=== PATIENT | male | born 1960 | race Caucasian/White ===

== ENCOUNTER 2016-09-01 10:03 | Inpatient (IN) | payer MEDICARE ==
[2016-09-01] MEDS ORDERED: SODIUM CHLORIDE 0.9% 10 ML FLUSH FLUSH PRN (10:13)
[2016-09-01] MEDS ORDERED: NS 1,000 ML IV ONE (10:13)
[2016-09-01 10:31] LABS: ALLEN'S TEST PASS; BEb 2.6 (+/- 2); TCO2 28.5 MMOL/L (23-27)
[2016-09-01 10:32] LABS: ABG Draw Site Right Radial
--- NOTE | 2016-09-01 10:33 | EDPRACDOC ---
- General Information Chief Complaint: Dyspnea/Resp distress Stated Complaint: BREATHING DIFFICULTY Time Seen by Provider: 09/01/16 10:11 Information Source: Patient Mode Of Arrival: Car Home Medications: Home Medications Albuterol Sulfate [Proair Hfa] 2 puff INH QID 01/04/14 Dexlansoprazole [Dexilant] 30 mg PO DAILY 01/04/14 Fluticasone/Salmeterol [Advair 250-50 Diskus] 1 puff INH BID 01/04/14 Metoprolol Succinate [Toprol Xl] 25 mg PO DAILY 01/04/14 Montelukast Sodium [Singulair] 10 mg PO HS 01/04/14 Nitroglycerin [Nitroquick] 0.4 mg SL Q5MX3 PRN 01/04/14 Simvastatin 40 mg PO HS 01/04/14 Nebulizer [Needs Home Nebulizer] 1 item NEB DIR 02/08/16 Tiotropium [place] [Spiriva] 18 mcg INH DAILY 02/08/16 Albuterol/Ipratropium Neb [Duoneb] 3 ml NEB Q6H PRN 02/09/16 Aspirin [Aspirin EC] 81 mg PO DAILY 02/09/16 Fentanyl [Fentanyl 75 mcg/hr patch] 75 mcg TOP Q48H 05/03/16 Azelastine HCl 1 spray NITA DAILY 09/01/16 Bupropion HCl [Wellbutrin Xl] 150 mg PO .DAILY SEE COMMENTS 09/01/16 Diphenoxylate HCl/Atrop Sulf [Lomotil Tablet] 1 tab PO Q6H PRN 09/01/16 Fluticasone Propionate [Flonase Nasal [place]] 1 spray NITA DAILY 09/01/16 Trazodone HCl [Desyrel] 50 mg PO QHS 09/01/16 Allergies/Adverse Reactions: Allergies Allergy/AdvReac Type Severity Reaction Status Date / Time No Known Allergies Allergy Verified 05/03/16 12:00 - History of Present Illness Symptoms Started: 2 DAYS Symptoms: Reports: Cough Relevant History Of: Reports: COPD Shortness of Breath: Mild Cough Frequency: Intermittent Cough Description: Reports: Productive Rhinorrhea: Reports: Brown Ear Symptoms: Reports: None Associated Signs and Symptoms: Reports: Cough ED Past Medical History - History Reviewed Yes Nurses notes reviewed and agree except as marked - Patient Medical History Cardiac History: Reports: Hypertension, Heart Attack (2003 stent x 1 at [facility]), Cardiac Catheterization (2002 stent x 1 at [facility]). Denies: Congestive Heart Failure, CABG Respiratory History: Reports: COPD, Emphysema GI/ History: Reports: Gastroesophageal Reflux Musculoskeletal History: Reports: Arthritis (ANKYLOSING SPONDYLITIS, Spinal stensosis, DDD.), Osteoarthritis (and chronic pain) Psychological History: Reports: Depression, Anxiety. Denies: Substance Use Disorder (But patient smokes) Additional Past Medical History: CHRONIC PAIN Surgical History: Reports: Angioplasty, Cardiac Catheterization (2002 stent x 1 at [facility]), Tonsillectomy/Adnoidectomy, Other (Vasectomy. Lumbar laminectomy x2.). Denies: CABG - Family Medical History Reports: Hypertension (Mother, Father), Diabetes (Mother), Cancer (Father), Stroke (MGF, MGM), Cardiac Disorders (Father: [place] in 40s. PGF: [place].) - Social Medical History Smoking Status: Heavy tobacco smoker (5 or more cigarettes/day or daily pipe/ cigar) Social History: Denies: Substance Use Disorder (But patient smokes) EDM Review of Systems - Review of Systems ROS Negative Except as Marked: Yes All systems reviewed and were negative except as marked - Physical Exam Constitutional: Alert (Awake), No apparent distress Oriented to: Time, Person, Place Last recorded Vital Signs: Last Vital Signs Temp 98.4 F 09/01/16 10:10 Pulse 122 H 09/01/16 10:10 Resp 18 09/01/16 10:10 BP 137/88 09/01/16 10:10 Pulse Ox 94 09/01/16 10:10 Oxygen Pulse Oxygen Saturation 94 O2 Device Oxygen Flow Rate Fraction of Inspired Oxygen ( FIO2) - HEENT Head: Normal ( normocephalic) Eye Exam: Normal (PERRL, EOMI, Sclera white) Oropharynx: Normal (Pharynx:Moist without exudate,Gums-no swelling) ENT EAC: Normal TMJ: Normal Nose: No Symptoms Reported (septum midline) Neck: Normal (FROM, trachea at midline) - Respiratory/Cardiovascular Respiratory: Diminished, Wheezes. negative: Accessory Muscle Use Cardiovascular: Tachycardia - GI Auscultation: Normal (NABS) Palpation: Normal (Soft,No rebound or guarding, non distended) Tenderness: Non tender Cardoso's Sign: Negative - Musculoskeletal Back: Normal (Non-Tender) Extremities: Normal (Normal tone, Pulses 2+ No cyanosis or edema, FROM) - Integumentary Skin: Normal, Warm, Dry Lymphatics: Normal (no adenopathy) - Neurologic Memory Impaired: Normal Motor Function: Normal (Normal tone, Pulses 2+ No cyanosis or edema, FROM) Cranial Nerve: Normal (CN II-X11 intact sensation, strength 5/5) Cerebellar: Normal Mood Description: Normal Perception: Normal - Results 09/01/16 10:15 09/01/16 10:15 Puncture Site Right radial 09/01/16 10:27 pH 7.430 pH UNITS (7.35-7.45) 09/01/16 10:27 pCO2 41.0 mmHg (35-45) 09/01/16 10:27 pO2 54.0 mmHg (80-100) L 09/01/16 10:27 HCO3 27.2 MMOL/L (22-26) H 09/01/16 10:27 Total CO2 28.5 MMOL/L (23-27) H 09/01/16 10:27 Base Excess 2.6 (+/- 2) H 09/01/16 10:27 FiO2 % 0.21 09/01/16 10:27 Specimen Drawn By Belja 09/01/16 10:27 Lab Results 09/01/16 10:27 Puncture Site Right radial pH 7.430 pCO2 41.0 pO2 54.0 L HCO3 27.2 H Total CO2 28.5 H Base Excess 2.6 H FiO2 % 0.21 Specimen Drawn By Belja - EKG EKG #1 [place]: Normal Rhythm: ST Block: None Hypertrophy: None ST: Normal ED Critical Care Note - Critical Care Note Total Time (mins): 35 - Departure Yes I personally saw and evaluated the patient. Disposition: Admit IP To This Hospital Condition: Good Final Diagnosis: Acute exacerbation of chronic obstructive airways disease, Acute bronchitis, HYPOXIA Referrals: Ellie Moon MD [Primary Care Provider] - One Week Prescriptions: No Action Metoprolol Succinate [Toprol Xl] 25 mg PO DAILY Simvastatin 40 mg PO HS Montelukast Sodium [Singulair] 10 mg PO HS Dexlansoprazole [Dexilant] 30 mg PO DAILY Nitroglycerin [Nitroquick] 0.4 mg SL Q5MX3 PRN PRN Reason: Chest Pain Or Discomfort Fluticasone/Salmeterol [Advair 250-50 Diskus] 1 puff INH BID Albuterol Sulfate [Proair Hfa] 2 puff INH QID Tiotropium [place] [Spiriva] 18 mcg INH DAILY Nebulizer [Needs Home Nebulizer] 1 item NEB DIR Albuterol/Ipratropium Neb [Duoneb] 3 ml NEB Q6H PRN PRN Reason: Shortness Of Breath Aspirin [Aspirin EC] 81 mg PO DAILY Fentanyl [Fentanyl 75 mcg/hr patch] 75 mcg TOP Q48H Trazodone HCl [Desyrel] 50 mg PO QHS Fluticasone Propionate [Flonase Nasal [place]] 1 spray NITA DAILY Bupropion HCl [Wellbutrin Xl] 150 mg PO .DAILY SEE COMMENTS Diphenoxylate HCl/Atrop Sulf [Lomotil Tablet] 1 tab PO Q6H PRN PRN Reason: Diarrhea Azelastine HCl 1 spray NITA DAILY Decision to Admit Time: 11:40 (GREEN) Decision to admit date: 09/01/16 Decision to admit: from ED
[2016-09-01 10:37] LABS: AUTOMATED BASOPHIL 0.6 % (0-2); AUTOMATED EOSINOPHIL 0.7 % (0-5); AUTOMATED LYMPH 7.3 % (17-44); AUTOMATED MONOCYTE 6.2 % (3-10); AUTOMATED NEUTROPHIL 85.2 % (45-76); MPV 9.5 fL (7.4-10.4)
--- NOTE | 2016-09-01 10:37 | DIRPT ---
CLINICAL DATA: Chest pain, shortness breath for 2 days. EXAM: PORTABLE CHEST 1 VIEW COMPARISON: 05/05/2016 FINDINGS: There is hyperinflation of the lungs compatible with COPD. Heart and mediastinal contours are within normal limits. No focal opacities or effusions. No acute bony abnormality. IMPRESSION: COPD. No active disease. Electronically Signed By: Calixto Hair M.D. On: 09/01/2016 10:34
[2016-09-01 10:47] LABS: PARTIAL THROMB. TIME 27.4 SEC (22-35); PT-INR 1.1
[2016-09-01 10:49] LABS: BLOOD UREA NITROGEN 10 MG/DL (9-20); CALCIUM 9.4 MG/DL (8.4-10.2); CALCULATED OSMOLALITY 259 MOs/Kg (270-290); CHLORIDE 96 mEq/L (98-107); GLUCOSE 95 MG/DL (70-99); SODIUM LEVEL 135 mEq/L (137-146); TOTAL PROTEIN 8.2 G/DL (6.3-8.2)
[2016-09-01] MEDS ORDERED: Pharmacy Review for Metformin - IV Contrast Given SCH (11:00)
--- NOTE | 2016-09-01 11:27 | DIRPT ---
CLINICAL DATA: Shortness of breath for the past 2 days. History of CAD and COPD. Evaluate for pulmonary embolism. EXAM: CT ANGIOGRAPHY CHEST WITH CONTRAST TECHNIQUE: Multidetector CT imaging of the chest was performed using the standard protocol during bolus administration of intravenous contrast. Multiplanar CT image reconstructions and MIPs were obtained to evaluate the vascular anatomy. CONTRAST: 100 cc Isovue 370 COMPARISON: Chest radiograph-earlier same day; chest CT - 01/04/2014 FINDINGS: Vascular Findings: There is adequate opacification of the pulmonary arterial system with the main pulmonary artery measuring 425 Hounsfield units. There are no discrete filling defects within the pulmonary arterial tree to suggest pulmonary embolism. Normal caliber of the main pulmonary artery. Normal heart size. No pericardial effusion. Scattered minimal amount of atherosclerotic plaque within a normal caliber thoracic aorta. No thoracic aortic dissection or periaortic stranding. Conventional configuration of the aortic arch. The branch vessels of the aortic arch appear widely patent throughout their imaged course. Review of the MIP images confirms the above findings. Nonvascular Findings: Interval development of a punctate (approximately 3 mm) nodule within the left lower lobe (image 94, series 4). Previous identified right upper lobe pulmonary nodules are unchanged with dominant 6 mm nodule seen on image 30, series 4 an adjacent smaller (approximately 4 mm) nodule seen on image 23, series 4). Grossly unchanged slightly asymmetric biapical pleural parenchymal thickening, left greater than right. No focal airspace opacities. No pleural effusion or pneumothorax. There is a minimal amount of nonocclusive debris lying dependently within the right mainstem bronchus (image 54, series 4). The remaining central pulmonary airways are widely patent though note is made of very mild perihilar bronchial wall thickening. No mediastinal, hilar axillary lymphadenopathy. Early arterial phase evaluation of the upper abdomen is normal. Suspected at least subacute fracture involving the anterior aspect of the left fifth rib (image 66, series 3) with associated minimal adjacent callus formation, though new since the 01/2014 examination. Regional soft tissues appear normal. Normal appearance of the thyroid gland. IMPRESSION: 1. Suspected mild centralized airways disease/bronchitis. Otherwise, no acute cardiopulmonary disease. Specifically, no evidence of pulmonary embolism. 2. Age-indeterminate, though presumably at least subacute, nondisplaced fracture involving the anterior aspect of the left fifth rib. Clinical correlation is advised. 3. Previously identified right upper lobe pulmonary nodules are unchanged since the 01/2014 examination and thus of benign etiology. 4. Interval development of a punctate (approximately 3 mm) left lower lobe pulmonary nodule. If the patient is at high risk for bronchogenic carcinoma, follow-up chest CT at 1 year is recommended. If the patient is at low risk, no follow-up is needed. This recommendation follows the consensus statement: Guidelines for Management of Small Pulmonary Nodules Detected on CT Scans: A Statement from the Fleischner Society as published in Radiology 2005; 237:395-400. Electronically Signed By: Baudilio Simons M.D. On: 09/01/2016 11:24
[2016-09-01] MEDS ORDERED: AZITHROMYCIN 500 MG in D5W 250 ML IV ONE (11:29)
[2016-09-01] MEDS ORDERED: CEFTRIAXONE 2 GM in D5W 100 ML IV ONE (11:29)
[2016-09-01] MEDS ORDERED: Albuterol/Ipratropium Neb 3 ML NEB NEB ONE (11:33)
[2016-09-01] MEDS ORDERED: GLUCOSE (ORAL GEL) 15 GM TUBE PO PRN (12:50)
[2016-09-01] MEDS ORDERED: GLUCAGON 1 MG VIAL SQ PRN (12:50)
[2016-09-01] MEDS ORDERED: DEXTROSE 25 GM/50 ML PFS IV PRN (12:50)
[2016-09-01] MEDS ORDERED: Albuterol/Ipratropium Neb 3 ML NEB NEB PRN (12:50)
[2016-09-01] MEDS ORDERED: NITROGLYCERINE 0.4 MG TAB SL PRN (12:56)
[2016-09-01] MEDS ORDERED: FENTANYL 75 MCG TOP SCH (13:00)
[2016-09-01] MEDS ORDERED: [UNRECOGNIZED DRUG - OTHER] NEB SCH (13:00)
--- NOTE | 2016-09-01 13:09 | HISTPHYS ---
- Chief Complaint sob, cough, green phlegm - History of Present Illness 56 yowm presented emergency room early on today for evaluation of progressive worsening difficulties breathing chest tightness wheezes cough and phlegm production. Patient stays about a week ago he has developed chest congestion cough productive of small amount of foamy sputum. He has subsequent developed progressive worsening dyspnea chest tightness wheezes which has progressively worsened and not responded to increased frequency of nebulized bronchodilators. Patient reports low-grade fevers chills and sweats, he also reports episodes of pleuritic chest pain. He has been coughing producing fair amount of greenish brownish sputum. Over past couple days his dyspnea has worsened in early on this morning patient was found himself gasping for air and decided to be evaluated emergency room. Upon arrival in ED was found to be in severe respiratory distress hypoxic tachypneic and tachycardic. His PaO2 was only 55, CT chest confirmed bronchopneumonia and medical consultation was phoned in for inpatient treatment. - Medical History Cardiac History: Reports: Coronary Artery Disease, Hypertension, Heart Attack ( 2002 stent x 1 at [facility]), Cardiac Catheterization (2002 stent x 1 at [facility]), Hypercholesterolemia, Valvular Heart Disease. Denies: Congestive Heart Failure, CABG Respiratory History: Reports: COPD, Pneumonia, Emphysema GI/ History: Reports: Gastroesophageal Reflux Musculoskeletal History: Reports: Arthritis (ANKYLOSING SPONDYLITIS, Spinal stensosis, DDD.), Osteoarthritis (and chronic pain), Other Systemic History: Reports: Other Neurological History: Reports: No Significant History Psychological History: Reports: Depression, Anxiety. Denies: Substance Use Disorder (But patient smokes) - Surgical History Reports: Appendectomy, Angioplasty, Cardiac Catheterization (2002 stent x 1 at [facility]), Tonsillectomy, Tonsillectomy/Adnoidectomy, Other (Vasectomy. Lumbar laminectomy x2.stent, vasectomy). Denies: CABG - Medictions/Allergies Allergies No Known Allergies Allergy (Verified 05/03/16 12:00) Current Medication List: Reviewed Home Medications Albuterol Sulfate [Proair Hfa] 2 puff INH QID 01/04/14 Dexlansoprazole [Dexilant] 30 mg PO DAILY 01/04/14 Fluticasone/Salmeterol [Advair 250-50 Diskus] 1 puff INH BID 01/04/14 Metoprolol Succinate [Toprol Xl] 25 mg PO DAILY 01/04/14 Montelukast Sodium [Singulair] 10 mg PO HS 01/04/14 Nitroglycerin [Nitroquick] 0.4 mg SL Q5MX3 PRN 01/04/14 Simvastatin 40 mg PO HS 01/04/14 Nebulizer [Needs Home Nebulizer] 1 item NEB DIR 02/08/16 Tiotropium [place] [Spiriva] 18 mcg INH DAILY 02/08/16 Albuterol/Ipratropium Neb [Duoneb] 3 ml NEB Q6H PRN 02/09/16 Aspirin [Aspirin EC] 81 mg PO DAILY 02/09/16 Fentanyl [Fentanyl 75 mcg/hr patch] 75 mcg TOP Q48H 05/03/16 Azelastine HCl 1 spray NITA DAILY 09/01/16 Bupropion HCl [Wellbutrin Xl] 150 mg PO .DAILY SEE COMMENTS 09/01/16 Diphenoxylate HCl/Atrop Sulf [Lomotil Tablet] 1 tab PO Q6H PRN 09/01/16 Fluticasone Propionate [Flonase Nasal [place]] 1 spray NITA DAILY 09/01/16 Trazodone HCl [Desyrel] 50 mg PO QHS 09/01/16 - Family History Reports: Hypertension (Mother, Father), Diabetes (Mother), Cancer (Father), Stroke (MGF, MGM), Cardiac Disorders (Father: [place] in 40s. PGF: [place].) - Social History Travel Outside of [place] in the Last 3 Months?: No Lives: With Family Smoking Status: Heavy tobacco smoker (5 or more cigarettes/day or daily pipe/ cigar) Social History: Denies: Substance Use Disorder (But patient smokes) - Review of Systems Constitutional: Chills, Fever, Diaphoresis, Fatigue, Loss of Appetite, Weakness Eyes: No Symptoms Reported Ears: No Symptoms Reported Nose: No Symptoms Reported Mouth: No Symptoms Reported Throat/Neck: No Symptoms Reported Respiratory: Cough, Shortness of Breath, Wheezing, Sputum, Dyspnea Cardiovascular: Palpitations Gastrointestinal: Constipation, Heartburn Genitourinary: Nocturia Neurological: No Symptoms Reported Musculoskeletal:: Chronic low back pain, Arthritis Integumentary: No Symptoms Reported Allergic/Immunologic: No Symptoms Reported Hematologic: No Symptoms Reported Endocrine: No Symptoms Reported Psychiatric: No Symptoms Reported - Physical Exam Vital Signs: Initial Vitals Temperature 98.4 F 09/01/16 10:10 Pulse Rate 122 H 09/01/16 10:10 Respiratory Rate 18 09/01/16 10:10 Blood Pressure 137/88 09/01/16 10:10 Pulse Oxygen Saturation 94 09/01/16 10:10 Constitutional: Alert, Cachectic, Distress, Restless, Other (Visibly short of breath with audible rhonchi some wheezes) Oriented to: Time, Person, Place - HEENT Head: Normal Eye: Normal Oropharynx: Normal ENT EAC: Normal Nose: No Symptoms Reported Respiratory: Accessory Muscle Use, Diminished, Rhonchi, Tachypnea, Wheezes Cardiovascular: Normal, Systolic murmur - GI Auscultation: Normal Palpation: Normal Tenderness: Non tender Rectal Exam: Deferred - Exam Deferred: Yes - Musculoskeletal Back: Lumbar Step-off Extremities: Normal, Cyanosis Spine: limited range of motion - Integumentary Skin: Normal, Warm, Dry Lymphatics: Normal - Neurologic Memory Impaired: Normal Motor Function: Normal Cranial Nerve: Normal Mood Description: Anxious Thought: Coherent Perception: Normal - Focused CV Perfusion Exam Vital Signs: Last Vital Signs Temp 98.4 F 09/01/16 10:10 Pulse 95 09/01/16 12:22 Resp 18 09/01/16 12:22 BP 139/64 09/01/16 12:22 Pulse Ox 95 09/01/16 12:22 - Diagnostic Findings Allergies No Known Allergies Allergy (Verified 05/03/16 12:00) Last Vital Signs Temp 98.4 F 09/01/16 10:10 Pulse 95 09/01/16 12:22 Resp 18 09/01/16 12:22 BP 139/64 09/01/16 12:22 Pulse Ox 95 09/01/16 12:22 09/01/16 10:15 09/01/16 10:15 Abnormal Lab Results 09/01/16 09/01/16 09/01/16 10:15 10:15 10:27 WBC 13.6 H Neut % (Auto) 85.2 H Lymph % (Auto) 7.3 L Absolute Neuts (auto) 11.56 H pO2 54.0 L HCO3 27.2 H Total CO2 28.5 H Base Excess 2.6 H Sodium 135 L Chloride 96 L Calculated Osmolality 259 L Patient Name: ALFREDO IRWIN LOC: ED : 1960 AGE: 56 Order Date:09/01/16 Date of Service: Report # [id number] Ord Physician: Marlo Myrick MD Exam # [id number] Emergency Physician: Marlo Myrick MD Exam(s): [id number] CT/CT ANGIO CHEST CLINICAL DATA: Shortness of breath for the past 2 days. History of CAD and COPD. Evaluate for pulmonary embolism. EXAM: CT ANGIOGRAPHY CHEST WITH CONTRAST TECHNIQUE: Multidetector CT imaging of the chest was performed using the standard protocol during bolus administration of intravenous contrast. Multiplanar CT image reconstructions and MIPs were obtained to evaluate the vascular anatomy. CONTRAST: 100 cc Isovue 370 COMPARISON: Chest radiograph-earlier same day; chest CT - 01/04/2014 FINDINGS: Vascular Findings: There is adequate opacification of the pulmonary arterial system with the main pulmonary artery measuring 425 Hounsfield units. There are no discrete filling defects within the pulmonary arterial tree to suggest pulmonary embolism. Normal caliber of the main pulmonary artery. Normal heart size. No pericardial effusion. Scattered minimal amount of atherosclerotic plaque within a normal caliber thoracic aorta. No thoracic aortic dissection or periaortic stranding. Conventional configuration of the aortic arch. The branch vessels of the aortic arch appear widely patent throughout their imaged course. Review of the MIP images confirms the above findings. -- Nonvascular Findings: Interval development of a punctate (approximately 3 mm) nodule within the left lower lobe (image 94, series 4). Previous identified right upper lobe pulmonary nodules are unchanged with dominant 6 mm nodule seen on image 30, series 4 an adjacent smaller (approximately 4 mm) nodule seen on image 23, series 4). Grossly unchanged slightly asymmetric biapical pleural parenchymal thickening, left greater than right. No focal airspace opacities. No pleural effusion or pneumothorax. There is a minimal amount of nonocclusive debris lying dependently within the right mainstem bronchus (image 54, series 4). The remaining central pulmonary airways are widely patent though note is made of very mild perihilar bronchial wall thickening. No mediastinal, hilar axillary lymphadenopathy. Early arterial phase evaluation of the upper abdomen is normal. Suspected at least subacute fracture involving the anterior aspect of the left fifth rib (image 66, series 3) with associated minimal adjacent callus formation, though new since the 01/2014 examination. Regional soft tissues appear normal. Normal appearance of the thyroid gland. IMPRESSION: 1. Suspected mild centralized airways disease/bronchitis. Otherwise, no acute cardiopulmonary disease. Specifically, no evidence of pulmonary embolism. 2. Age-indeterminate, though presumably at least subacute, nondisplaced fracture involving the anterior aspect of the left fifth rib. Clinical correlation is advised. 3. Previously identified right upper lobe pulmonary nodules are unchanged since the 01/2014 examination and thus of benign etiology. 4. Interval development of a punctate (approximately 3 mm) left lower lobe pulmonary nodule. If the patient is at high risk for bronchogenic carcinoma, follow-up chest CT at 1 year is recommended. If the patient is at low risk, no follow-up is needed. This recommendation follows the consensus statement: Guidelines for Management of Small Pulmonary Nodules Detected on CT Scans: A Statement from the Fleischner Society as published in Radiology 2005; 237:395-400. Electronically Signed By: Baudilio Simons M.D. On Patient Name: ALFREDO IWRIN LOC: ED : 1960 AGE: 56 Order Date:09/01/16 Date of Service: Report # [id number] Ord Physician: Marlo Myrick MD Exam # [id number] Emergency Physician: Marlo Myrick MD Exam(s): [id number] RAD/DG CHEST PORTABLE CLINICAL DATA: Chest pain, shortness breath for 2 days. EXAM: PORTABLE CHEST 1 VIEW COMPARISON: 05/05/2016 FINDINGS: There is hyperinflation of the lungs compatible with COPD. Heart and mediastinal contours are within normal limits. No focal opacities or effusions. No acute bony abnormality. IMPRESSION: COPD. No active disease. Electronically Signed By: Calixto Hair M.D. On: 09/01/2016 10:34 Electronically Signed By: Calixto Hair MD Electronically Signed Date/Time: [id number] Dictate EKG: sinus tach - Assessment (1) Acute respiratory failure with hypoxia J96.01 - ACUTE RESPIRATORY FAILURE WITH HYPOXIA Acute Present on Admission: Yes Patient will be admitted to telemetry floor. Supplemental O2 will be provided. Will monitor his pulmonary status. ABG will be obtained the morning (2) COPD with exacerbation J44.1 - CHRONIC OBSTRUCTIVE PULMONARY DISEASE W (ACUTE) EXACERBATION Acute Present on Admission: Yes Patient will receive nebulized bronchodilators and IV steroids. Continue mucolytics and aggressive pulmonary toilet. Continue incentive spirometer and flutter valve (3) Bronchopneumonia J18.0 - BRONCHOPNEUMONIA, UNSPECIFIED ORGANISM Acute Present on Admission: Yes Patient will receive IV antibiotics in the form of Rocephin and Zithromax. Adjust antibiotics based on culture results. (4) CAD (coronary artery disease) I25.10 - ATHSCL HEART DISEASE OF [place] CORONARY ARTERY W/O ANG PCTRS Chronic Present on Admission: Yes Qualifiers: Coronary Disease-Associated Artery/Lesion type: [place] artery [place] vs. transplanted heart: [place] heart Associated angina: without angina Qualified Code(s): I25.10 - Atherosclerotic heart disease of [place] coronary artery without angina pectoris Continue medical therapy. Three sets of cardiac enzymes will be obtained. (5) Ankylosing spondylitis M45.9 - ANKYLOSING SPONDYLITIS OF UNSPECIFIED SITES IN SPINE Chronic Present on Admission: Yes Continue narcotic analgesics for his chronic back pain. (6) Nicotine addiction F17.200 - NICOTINE DEPENDENCE, UNSPECIFIED, UNCOMPLICATED Chronic Qualifiers: Nicotine product type: cigarettes Substance use status: other nicotine- induced disorder Qualified Code(s): F17.218 - Nicotine dependence, cigarettes , with other nicotine-induced disorders Smoking cessation counseling provided the patient (7) Dehydration E86.0 - DEHYDRATION Acute Present on Admission: Yes Gentle IV hydration will be provided (8) Lung nodule R91.1 - SOLITARY PULMONARY NODULE Acute Present on Admission: Yes Patient is cleared structured to follow up with his make up operator on regular basis, he will need repeated CT chest in 3 months Case Care Discussed with: Patient, Consultants, Nursing Staff, Respiratory Therapy, Retail Operations Manager Total Time: 65 min Critical Care: No Code: 79859
[2016-09-01] MEDS: Albuterol/Ipratropium Neb 3 ML NEB NEB SCH ×2 (13:47→20:34)
[2016-09-01] MEDS ORDERED: AZELASTINE 137 MCG/SPRAY NASAL SPRAY NAS SCH (14:00)
[2016-09-01] MEDS ORDERED: FLUTICASONE/SALMETEROL 250/50 DISKUS INH SCH (14:00)
[2016-09-01] MEDS: NS 1,000 ML IV SCH ×2 (14:54→23:23)
[2016-09-01] MEDS: METHYLPREDNISOLONE 125 MG/2 ML VIAL IV SCH ×2 (14:55→19:51)
[2016-09-01] MEDS: REGULAR INSULIN 100 UNITS/ML - 3 ML VIAL SQ SCH (16:56)
[2016-09-01] MEDS: ENOXAPARIN 40 MG/0.4 ML PFS SQ SCH (18:10)
[2016-09-01] MEDS: FENTANYL 75 MCG PATCH TOP SCH (19:51)
[2016-09-01] MEDS: SIMVASTATIN 40 MG TAB PO SCH (19:52)
[2016-09-01] MEDS: TRAZODONE 50 MG TAB PO SCH (19:52)
[2016-09-01] MEDS: MONTELUKAST SODIUM 10 MG TAB PO SCH (19:52)
[2016-09-01] MEDS: GUAIFENESIN 600 MG LA TAB PO SCH (19:52)
[2016-09-01] MEDS: FLUTICASONE/SALMETEROL 250/50 DISKUS INH SCH (20:37)
--- NOTE | 2016-09-02 00:22 | HIMCONS ---
DATE OF CONSULT: REQUESTING PHYSICIAN: Dav Krause MD REASON FOR CONSULTATION: Respiratory failure. HISTORY OF PRESENT ILLNESS: The patient is a 56-year-old male, who was admitted earlier today with wheezing, coughing, and chest tightness. He has been coughing up for about a week some foamy phlegm and has been short of breath, which was progressively getting worse and was using more and more of his nebulizers. He has had low-grade fevers, chills, and sweats. He has been coughing up now greenish to brownish phlegm, eventually the patient was brought to the emergency room because he was gasping for air. He was tachycardiac, tachypneic, PO2 was 55, and CAT scan showed bronchopneumonia. Therefore, the patient was admitted to the hospital. He is feeling somewhat better since he has been in the hospital. PAST MEDICAL HISTORY: Significant for, 1. Coronary artery disease. 2. Hypertension. 3. FL in 2002, status post stents and cardiac catheterization. 4. Hypercholesterolemia. 5. Valvular heart disease. 6. COPD. 7. Gastroesophageal reflux disease. 8. Ankylosing spondylitis. 9. Spinal stenosis. 10.Degenerative disk disease. 11.Osteoarthritis with chronic pain. 12.Depression. 13.Anxiety. SURGICAL HISTORY: Significant for appendicectomy, angioplasty and cardiac catheterization, tonsillectomy, adenoidectomy, vasectomy, lumbar laminectomy x2, and stent. ALLERGIES: NO KNOWN DRUG ALLERGIES. MEDICATIONS: In the chart and were noted. FAMILY HISTORY: Significant for father having cancer and cardiac disorders with [place] and at the age of 40 and had hypertension. Mother had diabetes, and hypertension. SOCIAL HISTORY: The patient has been a smoker most of his adult life. No history of alcohol or drug abuse. REVIEW OF SYSTEMS: Review of systems is negative, except for as mentioned in the history of present illness. PHYSICAL EXAMINATION: VITAL SIGNS: Temperature is 98.1 degrees Fahrenheit, pulse is 95, respiratory rate 16, blood pressure 140/62, pulse ox 95% on 2 liters nasal cannula. CHEST: Clear to auscultate with scattered occasional wheezing. HEART: S1, S2. Regular. No murmur. EXTREMITIES: No clubbing, cyanosis, or edema. ABDOMEN: Soft and nontender. Bowel sounds present. Hepatosplenomegaly is absent. LABORATORY DATA: White count 13.6, hemoglobin 15.1, hematocrit is 44.7, platelets are 207. PT and INR within normal limits. Blood gas showed a pH 7.43, pCO2 of 41, PO2 of 54 on room air. Sodium 135, potassium 4.0, chloride 96, CO2 is 27, BUN is 10, creatinine 0.9, glucose 95. LFTs are within normal limits. ProBNP level was 70. IMAGING REPORTS: CT scan of the chest was seen personally. The patient seems to have bilateral nodules in both right upper lobe and left upper lobe, left upper lobe 3 millimeters nodule, however, the right upper lobe nodules were old and unchanged. Left 5th rib fracture displaced was noted as well. IMPRESSION: 1. [id number] respiratory failure. 2. Chronic obstructive pulmonary disease exacerbation. 3. Ankylosing spondylitis, nicotine addiction, etc. PLAN: I think the patient is on appropriate medications at this time. He is on Rocephin and Zithromax and has been improving slowly. He is currently on Solu-Medrol 80 mg IV q.6 hours. I will cut it down to 40 mg IV q.8 hours. Continue Singulair. Continued metered-dose inhalers or nebulizers and other supportive care. Prognosis remains guarded. We will follow the patient closely. I told him that he needs a CAT scan repeated in 3-6 months for the left upper lobe 3 millimeter nodule. Thank you much for the consultation and I will follow the patient with you. [id number]
[2016-09-02] MEDS: Albuterol/Ipratropium Neb 3 ML NEB NEB SCH ×4 (01:14→20:01)
[2016-09-02] MEDS: REGULAR INSULIN 100 UNITS/ML - 3 ML VIAL SQ SCH ×4 (01:47→17:44)
[2016-09-02 04:04] LABS: MPV 9.6 fL (7.4-10.4)
[2016-09-02 04:11] LABS: BLOOD UREA NITROGEN 12 MG/DL (9-20); CALCIUM 8.7 MG/DL (8.4-10.2); CALCULATED OSMOLALITY 260 MOs/Kg (270-290); CHLORIDE 101 mEq/L (98-107); GLUCOSE 167 MG/DL (70-99); SODIUM LEVEL 133 mEq/L (137-146)
[2016-09-02 04:52] LABS: SEG NEUTROPHIL 87 % (45-76)
[2016-09-02 05:06] LABS: ALLEN'S TEST PASS; BEb 0.5 (+/- 2); TCO2 26.7 MMOL/L (23-27)
[2016-09-02 05:08] LABS: ABG Draw Site Right Radial
[2016-09-02] MEDS: METHYLPREDNISOLONE 40 MG/1 ML VIAL IV SCH ×3 (05:08→22:12)
[2016-09-02] MEDS: PANTOPRAZOLE 40 MG TAB PO SCH (05:08)
--- NOTE | 2016-09-02 07:16 | DIRPT ---
CLINICAL DATA: Respiratory failure EXAM: PORTABLE CHEST 1 VIEW COMPARISON: 09/01/2016 FINDINGS: There is hyperinflation of the lungs compatible with COPD. Heart is normal size. No confluent airspace opacities or effusions. No acute bony abnormality. IMPRESSION: COPD. No active disease. Electronically Signed By: Calixto Hair M.D. On: 09/02/2016 07:14
[2016-09-02] MEDS: GUAIFENESIN 600 MG LA TAB PO SCH ×2 (08:12→22:11)
[2016-09-02] MEDS: BuPROPion 150 MG XL TAB PO SCH (08:12)
[2016-09-02] MEDS: METOPROLOL (TOPROL-XL) 25 MG TAB PO SCH (08:12)
[2016-09-02] MEDS: FLUTICASONE/SALMETEROL 250/50 DISKUS INH SCH ×2 (08:35→20:01)
[2016-09-02] MEDS ORDERED: Non-Formulary Medication ITEM (Tiotropium Bromide [Spiriva] 18 MCG) INH SCH (09:00)
--- NOTE | 2016-09-02 10:16 | GENMEDPROG ---
Subjective Note: Patient in bed responsive follows commands. Breathing slightly better, still coughing producing fair amount thick sputum, still short of breath with minimal exertion still tight in the chest and wheezy. Back pain under control Notes Reviewed: Yes Events from last night noted and discussed with Clinical Staff Current Medication List: Reviewed Currently: Reports: Cough, Wheezing, SU, SOB, Sputum, Tobacco Use/Hx, Constipation, Reflux Sx DVT Prophylaxis: Yes - Physical Examination Vital Signs and I&O: Last Vital Signs Temp 97.8 F 09/02/16 08:02 Pulse 87 09/02/16 08:02 Resp 18 09/02/16 08:02 BP 116/59 L 09/02/16 08:02 Pulse Ox 93 09/02/16 08:02 Oxygen Pulse Oxygen Saturation 93 O2 Device Nasal Cannula Oxygen Flow Rate 1 Fraction of Inspired Oxygen ( FIO2) Intake & Output 08/30/16 08/31/16 09/01/16 09/02/16 23:59 23:59 23:59 23:59 Intake Total 1298 1150 Output Total 800 900 Balance 498 250 Patient's weight 55.656 kg 55.157 kg General: Alert, Oriented x3, Cooperative, Mild distress HEENT: Normal, PERRLA, EOMI, Anicteric Sclera Neck: Non-tender, Limited range of motion Lymphatics: Normal Respiratory: Diminished, Rhonchi, Tachypnea, Wheezes Cardiovascular: Regular rate, Normal S1, Normal S2, Murmurs GI: Normal bowel sounds, Soft, Non tender, No hepatospenomegaly, No masses Extremities/Musculoskeletal: Normal pulses, Cyanosis, DJD Skin: Warm,Dry and Intact, No rashes, No breakdown, No significant lesion Neurological: Normal Steady Gait, Normal speech, Cranial nerves 3-12 NL Psych/Mental Status: Anxious Lab/DI/Studies Reviewed: Allergies No Known Allergies Allergy (Verified 05/03/16 12:00) 09/02/16 03:40 09/02/16 03:40 Last Vital Signs Temp 97.8 F 09/02/16 08:02 Pulse 87 09/02/16 08:02 Resp 18 09/02/16 08:02 BP 116/59 L 09/02/16 08:02 Pulse Ox 93 09/02/16 08:02 Abnormal Lab Results 09/01/16 09/01/16 09/01/16 10:15 10:15 10:27 WBC 13.6 H RBC Hgb Hct Neut % (Auto) 85.2 H Lymph % (Auto) 7.3 L Absolute Neuts (auto) 11.56 H Seg Neuts % (Manual) Lymphocytes % (Manual) Absolute Lymphocytes pO2 54.0 L HCO3 27.2 H Total CO2 28.5 H Base Excess 2.6 H Sodium 135 L Chloride 96 L Glucose POC Capillary Glucose Calculated Osmolality 259 L 09/01/16 09/01/16 09/02/16 13:54 16:35 01:01 WBC RBC Hgb Hct Neut % (Auto) Lymph % (Auto) Absolute Neuts (auto) Seg Neuts % (Manual) Lymphocytes % (Manual) Absolute Lymphocytes pO2 HCO3 Total CO2 Base Excess Sodium Chloride Glucose POC Capillary Glucose 114 H 143 H 188 H Calculated Osmolality 09/02/16 09/02/16 09/02/16 03:40 03:40 05:00 WBC RBC 3.95 L Hgb 12.2 L D Hct 35.2 L Neut % (Auto) Lymph % (Auto) Absolute Neuts (auto) Seg Neuts % (Manual) 87 H Lymphocytes % (Manual) 11 L Absolute Lymphocytes 0.61 L pO2 64.0 L HCO3 Total CO2 Base Excess Sodium 133 L Chloride Glucose 167 H POC Capillary Glucose Calculated Osmolality 260 L 09/02/16 05:53 WBC RBC Hgb Hct Neut % (Auto) Lymph % (Auto) Absolute Neuts (auto) Seg Neuts % (Manual) Lymphocytes % (Manual) Absolute Lymphocytes pO2 HCO3 Total CO2 Base Excess Sodium Chloride Glucose POC Capillary Glucose 195 H Calculated Osmolality Patient Name: ALFREDO IRWIN LOC: [facility] : 1960 AGE: 56 Order Date:09/01/16 Date of Service: Report # [id number] Ord Physician: Yosef Grigsby MD Exam # [id number] Emergency Physician: Marlo Myrick MD Exam(s): [id number] RAD/DG CHEST PORTABLE CLINICAL DATA: Respiratory failure EXAM: PORTABLE CHEST 1 VIEW COMPARISON: 09/01/2016 FINDINGS: There is hyperinflation of the lungs compatible with COPD. Heart is normal size. No confluent airspace opacities or effusions. No acute bony abnormality. IMPRESSION: COPD. No active disease. Electronically Signed By: Calixto Hair M.D. On: 09/02/2016 07:14 Electronically Signed By: Calixto Hair MD Electronically - Assessment (1) Acute respiratory failure with hypoxia Acute J96.01 - ACUTE RESPIRATORY FAILURE WITH HYPOXIA Comment/Plan: Slow improvement on maximal pulmonary therapy. Continue O2 nebs and pulmonary toilet. Monitor pulmonary status.. Pulmonary input appreciated (2) COPD with exacerbation Acute J44.1 - CHRONIC OBSTRUCTIVE PULMONARY DISEASE W (ACUTE) EXACERBATION Comment/Plan: Continue IV steroids and nebulized bronchodilators. Will gradually wean off IV steroids. Increase activity. (3) Bronchopneumonia Acute J18.0 - BRONCHOPNEUMONIA, UNSPECIFIED ORGANISM Comment/Plan: Patient will receive IV antibiotics in the form of Rocephin and Zithromax. Adjust antibiotics based on culture results. (4) CAD (coronary artery disease) Chronic I25.10 - ATHSCL HEART DISEASE OF [place] CORONARY ARTERY W/O ANG PCTRS Qualifiers: Coronary Disease-Associated Artery/Lesion type: [place] artery [place] vs. transplanted heart: [place] heart Associated angina: without angina Qualified Code(s): I25.10 - Atherosclerotic heart disease of [place] coronary artery without angina pectoris Comment/Plan: Continue medical therapy. Three sets of cardiac enzymes have been negative (5) Ankylosing spondylitis Chronic M45.9 - ANKYLOSING SPONDYLITIS OF UNSPECIFIED SITES IN SPINE Comment /Plan: Continue narcotic analgesics for his chronic back pain. 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 Critical Care: No Code: 04969 (12+)
[2016-09-02] MEDS: AZELASTINE 137 MCG/SPRAY NASAL SPRAY NAS SCH (10:32)
[2016-09-02] MEDS: HYDROCODONE 10 MG/ACETAMIN 325 MG TAB PO PRN ×2 (10:37→17:49)
[2016-09-02] MEDS: NS 1,000 ML IV SCH ×2 (10:38→14:31)
[2016-09-02] MEDS ORDERED: Vaccine Screening Complete SCH (11:00)
[2016-09-02] MEDS: CEFTRIAXONE 1 GM in D5W 100 ML IV SCH (12:51)
[2016-09-02] MEDS: AZITHROMYCIN 500 MG in D5W 250 ML IV SCH (14:31)
[2016-09-02] MEDS: ENOXAPARIN 40 MG/0.4 ML PFS SQ SCH (17:50)
[2016-09-02] MEDS: TRAZODONE 50 MG TAB PO SCH (22:11)
[2016-09-02] MEDS: SIMVASTATIN 40 MG TAB PO SCH (22:11)
[2016-09-02] MEDS: MONTELUKAST SODIUM 10 MG TAB PO SCH (22:11)
[2016-09-03] MEDS: HYDROCODONE 10 MG/ACETAMIN 325 MG TAB PO PRN ×4 (00:44→20:08)
[2016-09-03] MEDS: REGULAR INSULIN 100 UNITS/ML - 3 ML VIAL SQ SCH ×4 (02:03→17:12)
[2016-09-03] MEDS: Albuterol/Ipratropium Neb 3 ML NEB NEB SCH ×4 (02:09→19:19)
[2016-09-03 05:05] LABS: ALLEN'S TEST PASS; BEb 3.3 (+/- 2); TCO2 29.1 MMOL/L (23-27)
[2016-09-03 05:06] VITALS: BMI 18.8
[2016-09-03 05:09] LABS: ABG Draw Site Right Radial
[2016-09-03] MEDS: PANTOPRAZOLE 40 MG TAB PO SCH (05:51)
[2016-09-03] MEDS: METHYLPREDNISOLONE 40 MG/1 ML VIAL IV SCH ×3 (05:51→21:18)
[2016-09-03] MEDS: METOPROLOL (TOPROL-XL) 25 MG TAB PO SCH (08:36)
[2016-09-03] MEDS: BuPROPion 150 MG XL TAB PO SCH (08:36)
[2016-09-03] MEDS: GUAIFENESIN 600 MG LA TAB PO SCH ×2 (08:36→20:08)
[2016-09-03] MEDS: AZELASTINE 137 MCG/SPRAY NASAL SPRAY NAS SCH (08:37)
[2016-09-03] MEDS: NS 1,000 ML IV SCH (08:38)
--- NOTE | 2016-09-03 09:35 | PCM.PULM ---
Chief Complaint: Respiratory failure acute on chronic with hypoxia Pneumonia COPD exacerbation Acute bronchitis Chest pain CAD Patient breathing is slowly getting better. Current complaints:Chest pain, SOB,SU,productive cough,sputum,wheeze,nausea. Denies fever Medication list reviewed:yes Notes reviewed:yes, Events from last night noted and discussed with Clinical Staff DVT/GI prophylaxis:yes - Physical Examination Vital Signs and I&O: Last Vital Signs Temp 97.6 F 09/03/16 04:00 Pulse 80 09/03/16 05:56 Resp 18 09/03/16 04:00 BP 125/67 09/03/16 04:00 Pulse Ox 95 09/03/16 04:00 Oxygen Pulse Oxygen Saturation 95 O2 Device Nasal Cannula Oxygen Flow Rate 1 Fraction of Inspired Oxygen ( FIO2) Intake & Output 08/31/16 09/01/16 09/02/16 09/03/16 23:59 23:59 23:59 23:59 Intake Total 1298 3287 765 Output Total 800 2000 700 Balance 498 1287 65 Patient's weight 55.656 kg 55.157 kg 56.061 kg General: Alert, Oriented x3, Cooperative, No acute distress, Fatigue Respiratory: Diminished, Wheezes Cardiovascular: Regular rate, Regular rate and rhythm, Normal S1, No Gallops, Rubs/Murmurs, Normal S2, Good Pedal Pulses GI: Normal bowel sounds, Soft, Non tender, No hepatospenomegaly, No masses Extremities/Musculoskeletal: Normal pulses Skin: Warm,Dry and Intact, No rashes, No breakdown, No significant lesion Neurological: Normal Steady Gait, Normal speech, Strength at 5/5 X4 ext, Normal tone, Cranial nerves 3-12 NL Psych/Mental Status: Appropriate Result Diagrams: 09/02/16 03:40 09/02/16 03:40 Labs (last 24 hours): Laboratory Results - last 24 hr 09/02/16 09/02/16 09/03/16 11:30 15:43 01:17 Puncture Site pH pCO2 pO2 HCO3 Total CO2 Base Excess FiO2 % Specimen Drawn By POC Capillary Glucose 156 H 197 H 131 H 09/03/16 09/03/16 04:50 05:09 Puncture Site Right radial pH 7.440 pCO2 41.0 pO2 63.0 L HCO3 27.8 H Total CO2 29.1 H Base Excess 3.3 H FiO2 % 1l Specimen Drawn By Rakma POC Capillary Glucose 133 H Lab/DI/Studies Reviewed: Chest x-ray09/02 Chest x-ray was seen personally patient seems to have hyperinflated lung [place] with no acute infiltrate Microbiology 09/01/16 11:40 Blood Blood Culture - Preliminary No growth aerobically or anaerobically at 24-48 hours. NORMAL VALUE = No growth 09/01/16 11:35 Blood Blood Culture - Preliminary No growth aerobically or anaerobically at 24-48 hours. NORMAL VALUE = No growth Medications Montelukast Sodium (Singulair) 10 mg PO HS ZHAO Stop: 09/15/16 20:59 Last Admin: 09/02/16 22:11 Dose: 10 mg Acetaminophen/Hydrocodone Bitart (Hydrocodone 10 Mg/Acetamin 325 Mg) 1 tab PO Q6H PRN PRN Reason: Moderate to Severe Pain Stop: 09/09/16 16:59 Last Admin: 09/03/16 07:04 Dose: 1 tab Albuterol/Ipratropium (Duoneb) 3 ml NEB Q2H PRN PRN Reason: Wheezing Stop: 09/15/16 16:59 Albuterol/Ipratropium (Duoneb) 3 ml NEB RTQ6 ZHAO Stop: 09/15/16 16:59 Last Admin: 09/03/16 02:09 Dose: 3 ml Azelastine HCl (Astelin) 1 spr NITA DAILY ZHOA Stop: 09/16/16 08:59 Last Admin: 09/03/16 08:37 Dose: Not Given Azithromycin 500 mg/ Dextrose 250 mls @ 250 mls/hr IV Q24H ZHAO Stop: 09/07/16 13:59 Last Admin: 09/02/16 14:31 Dose: 250 mls/hr Bupropion HCl (Wellbutrin Xl) 150 mg PO DAILY ZHAO Stop: 09/16/16 08:59 Last Admin: 09/03/16 08:36 Dose: 150 mg Ceftriaxone Sodium 1 gm/ (Dextrose) 100 mls @ 200 mls/hr IV Q24H ZHAO Stop: 09/09/16 11:59 Last Admin: 09/02/16 12:51 Dose: 200 mls/hr Enoxaparin Sodium (Lovenox) 40 mg SQ Q24H ZAHO Stop: 09/15/16 17:59 Last Admin: 09/02/16 17:50 Dose: 40 mg Fentanyl (Duragesic) 75 mcg TOP Q48H [facility] Stop: 09/15/16 19:59 Last Admin: 09/01/16 19:51 Dose: 75 mcg Guaifenesin (Mucinex) 1,200 mg PO Q12 ZHAO Stop: 09/15/16 16:59 Last Admin: 09/03/16 08:36 Dose: 1,200 mg Insulin Human Regular (Humulin R) 0 units SQ Q6 ZHAO PRN Reason: Protocol Stop: 09/15/16 16:59 Last Admin: 09/03/16 05:45 Dose: Not Given Methylprednisolone Sodium Succinate (Solu-Medrol) 40 mg IV Q8H ZHAO Stop: 09/16/16 05:59 Last Admin: 09/03/16 05:51 Dose: 40 mg Metoprolol Succinate (Toprol Xl) 25 mg PO DAILY [facility] Stop: 09/16/16 08:59 Last Admin: 09/03/16 08:36 Dose: 25 mg Nitroglycerin (Ntg (Nitrostat Sublingual Tab)) 0.4 mg SL Q5MIN PRN PRN Reason: Chest Pain or Discomfort Stop: 09/15/16 12:55 Pantoprazole Sodium (Protonix) 40 mg PO 0600 [facility] Stop: 09/15/16 16:59 Last Admin: 09/03/16 05:51 Dose: 40 mg Fluticasone/Salmeterol (Advair 250-50) 1 puff INH RTBID [facility] Stop: 09/15/16 19:59 Last Admin: 09/02/16 20:01 Dose: 1 puff Simvastatin (Zocor) 40 mg PO HS [facility] Stop: 09/15/16 20:59 Last Admin: 09/02/16 22:11 Dose: 40 mg Sodium Chloride (Normal Saline) 1,000 mls @ 45 mls/hr IV Q24H ZHAO Stop: 09/15/16 16:59 Last Admin: 09/03/16 08:38 Dose: 45 mls/hr Trazodone HCl (Desyrel) 50 mg PO QHS [facility] Stop: 09/15/16 20:59 Last Admin: 09/02/16 22:11 Dose: 50 mg - Assessment/Plan (1) Acute bronchitis Acute J20.9 - ACUTE BRONCHITIS, UNSPECIFIED Comment/Plan: Patient is improving slowly continues to wheeze I would continue the Solu- Medrol 40 mg IV q.8 hours along with nebulizers DVT and GI prophylaxis and oxygen as needed continue other supportive care continue DVT and GI prophylaxis prognosis remains guarded would follow the patient closely for development of complications (2) Acute exacerbation of chronic obstructive airways disease Acute J44.1 - CHRONIC OBSTRUCTIVE PULMONARY DISEASE W (ACUTE) EXACERBATION Comment/Plan: Continue the current steroids along with nebulizers and oxygen. Patient is on antibiotic (3) Acute respiratory failure with hypoxia Acute J96.01 - ACUTE RESPIRATORY FAILURE WITH HYPOXIA Comment/Plan: Continue oxygen as needed continue other DVT and GI prophylaxis (4) Lung nodule Acute R91.1 - SOLITARY PULMONARY NODULE Comment/Plan: Patient has a chronic lung nodule and would follow that up as an outpatient
[2016-09-03] MEDS: FLUTICASONE/SALMETEROL 250/50 DISKUS INH SCH ×2 (10:09→19:19)
[2016-09-03] MEDS: CEFTRIAXONE 1 GM in D5W 100 ML IV SCH (11:03)
--- NOTE | 2016-09-03 12:48 | GENMEDPROG ---
Currently: Reports: Cough, Wheezing, SU, SOB, Sputum, Tobacco Use/Hx, Constipation, Reflux Sx DVT Prophylaxis: Yes - Physical Examination Vital Signs and I&O: Last Vital Signs Temp 98.6 F 09/03/16 10:32 Pulse 75 09/03/16 10:32 Resp 20 09/03/16 10:32 BP 114/64 09/03/16 10:32 Pulse Ox 91 09/03/16 10:32 Oxygen Pulse Oxygen Saturation 91 O2 Device Nasal Cannula Oxygen Flow Rate 1 Fraction of Inspired Oxygen ( FIO2) Intake & Output 08/31/16 09/01/16 09/02/16 09/03/16 23:59 23:59 23:59 23:59 Intake Total 1298 3287 1008 Output Total 800 2000 700 Balance 498 1287 308 Patient's weight 55.656 kg 55.157 kg 56.061 kg General: Alert, Oriented x3, Cooperative, Mild distress HEENT: Normal, PERRLA, EOMI, Anicteric Sclera Neck: Non-tender, Limited range of motion Lymphatics: Normal Respiratory: Diminished, Rhonchi, Tachypnea, Wheezes Cardiovascular: Regular rate, Normal S1, Normal S2, Murmurs GI: Normal bowel sounds, Soft, Non tender, No hepatospenomegaly, No masses Extremities/Musculoskeletal: Normal pulses, Cyanosis, DJD Skin: Warm,Dry and Intact, No rashes, No breakdown, No significant lesion Neurological: Normal Steady Gait, Normal speech, Cranial nerves 3-12 NL Psych/Mental Status: Anxious Lab/DI/Studies Reviewed: Laboratory Tests 09/03/16 09/03/16 09/03/16 04:50 05:09 11:14 pH 7.440 pCO2 41.0 pO2 63.0 L HCO3 27.8 H Total CO2 29.1 H Base Excess 3.3 H POC Capillary Glucose 133 H 170 H - Assessment (1) Acute exacerbation of chronic obstructive airways disease Acute J44.1 - CHRONIC OBSTRUCTIVE PULMONARY DISEASE W (ACUTE) EXACERBATION (2) Bronchopneumonia Acute J18.0 - BRONCHOPNEUMONIA, UNSPECIFIED ORGANISM Comment/Plan: Patient will receive IV antibiotics in the form of Rocephin and Zithromax. Adjust antibiotics based on culture results. (3) CAD (coronary artery disease) Chronic I25.10 - ATHSCL HEART DISEASE OF [place] CORONARY ARTERY W/O ANG PCTRS Qualifiers: Coronary Disease-Associated Artery/Lesion type: [place] artery [place] vs. transplanted heart: [place] heart Associated angina: without angina Qualified Code(s): I25.10 - Atherosclerotic heart disease of [place] coronary artery without angina pectoris Comment/Plan: Continue medical therapy. Three sets of cardiac enzymes have been negative (4) COPD with exacerbation Acute J44.1 - CHRONIC OBSTRUCTIVE PULMONARY DISEASE W (ACUTE) EXACERBATION Comment/Plan: Continue IV steroids and nebulized bronchodilators. Will gradually wean off IV steroids. Increase activity.
[2016-09-03] MEDS: AZITHROMYCIN 500 MG in D5W 250 ML IV SCH (13:39)
[2016-09-03] MEDS: ENOXAPARIN 40 MG/0.4 ML PFS SQ SCH (17:12)
[2016-09-03] MEDS: FENTANYL 75 MCG PATCH TOP SCH (20:05)
[2016-09-03] MEDS: SIMVASTATIN 40 MG TAB PO SCH (20:08)
[2016-09-03] MEDS: MONTELUKAST SODIUM 10 MG TAB PO SCH (20:08)
[2016-09-03] MEDS: TRAZODONE 50 MG TAB PO SCH (20:08)
[2016-09-04] MEDS: REGULAR INSULIN 100 UNITS/ML - 3 ML VIAL SQ SCH ×2 (00:41→05:29)
[2016-09-04] MEDS: Albuterol/Ipratropium Neb 3 ML NEB NEB SCH ×2 (01:10→07:51)
[2016-09-04] MEDS: METHYLPREDNISOLONE 40 MG/1 ML VIAL IV SCH (04:45)
[2016-09-04] MEDS: PANTOPRAZOLE 40 MG TAB PO SCH (04:45)
[2016-09-04] MEDS: HYDROCODONE 10 MG/ACETAMIN 325 MG TAB PO PRN ×2 (04:45→10:59)
[2016-09-04] MEDS: FLUTICASONE/SALMETEROL 250/50 DISKUS INH SCH (07:51)
--- NOTE | 2016-09-04 08:16 | PCM.PULM ---
Chief Complaint: Uneventful overnight with no acute distress. Patient in bed alert and responsive feeling better. Still has chest pain,dyspnea , SU,cough, sputum, wheeze, chest congestion. Has been up ambulating in hallway often and doing fair. Denies fever. On oxygen via nasal cannula Current medication list and notes reviewed:yes, Events from last night noted and discussed with Clinical Staff DVT prophylaxis:Yes - Physical Examination Vital Signs and I&O: Last Vital Signs Temp 97.9 F 09/04/16 04:30 Pulse 86 09/04/16 04:30 Resp 18 09/04/16 04:30 BP 105/67 09/04/16 04:30 Pulse Ox 95 09/04/16 07:52 Oxygen Pulse Oxygen Saturation 95 O2 Device Room Air Oxygen Flow Rate 1 Fraction of Inspired Oxygen ( FIO2) Intake & Output 09/01/16 09/02/16 09/03/16 09/04/16 23:59 23:59 23:59 23:59 Intake Total 1298 3287 2244 820 Output Total 800 8351 2522 1300 Balance 498 2976 -356 -027 Patient's weight 55.656 kg 55.157 kg 56.061 kg 56.727 kg General: Alert, Oriented x3, Cooperative, No acute distress Respiratory: Diminished Cardiovascular: Regular rate, Regular rate and rhythm, Normal S1, No Gallops, Rubs/Murmurs, Normal S2 GI: Normal bowel sounds, Soft, Non tender, No hepatospenomegaly, No masses Extremities/Musculoskeletal: Normal pulses Skin: Warm,Dry and Intact, No rashes, No breakdown, No significant lesion Neurological: Normal Steady Gait, Normal speech, Strength at 5/5 X4 ext, Cranial nerves 3-12 NL, Reflexes 2+ Psych/Mental Status: Normal Affect Result Diagrams: 09/02/16 03:40 09/02/16 03:40 Labs (last 24 hours): Laboratory Results - last 24 hr 09/03/16 09/03/16 09/04/16 11:14 16:57 00:00 POC Capillary Glucose 170 H 80 108 H 09/04/16 05:12 POC Capillary Glucose 108 H Lab/DI/Studies Reviewed: EKG: NSR, NO ST or ST wave changes noted Medications Montelukast Sodium (Singulair) 10 mg PO HS ZHAO Stop: 09/15/16 20:59 Last Admin: 09/02/16 22:11 Dose: 10 mg Acetaminophen/Hydrocodone Bitart (Hydrocodone 10 Mg/Acetamin 325 Mg) 1 tab PO Q6H PRN PRN Reason: Moderate to Severe Pain Stop: 09/09/16 16:59 Last Admin: 09/03/16 07:04 Dose: 1 tab Albuterol/Ipratropium (Duoneb) 3 ml NEB Q2H PRN PRN Reason: Wheezing Stop: 09/15/16 16:59 Albuterol/Ipratropium (Duoneb) 3 ml NEB RTQ6 ZHAO Stop: 09/15/16 16:59 Last Admin: 09/03/16 02:09 Dose: 3 ml Azelastine HCl (Astelin) 1 spr NITA DAILY [facility] Stop: 09/16/16 08:59 Last Admin: 09/03/16 08:37 Dose: Not Given Azithromycin 500 mg/ Dextrose 250 mls @ 250 mls/hr IV Q24H [facility] Stop: 09/07/16 13:59 Last Admin: 09/02/16 14:31 Dose: 250 mls/hr Bupropion HCl (Wellbutrin Xl) 150 mg PO DAILY [facility] Stop: 09/16/16 08:59 Last Admin: 09/03/16 08:36 Dose: 150 mg Ceftriaxone Sodium 1 gm/ (Dextrose) 100 mls @ 200 mls/hr IV Q24H [facility] Stop: 09/09/16 11:59 Last Admin: 09/02/16 12:51 Dose: 200 mls/hr Enoxaparin Sodium (Lovenox) 40 mg SQ Q24H [facility] Stop: 09/15/16 17:59 Last Admin: 09/02/16 17:50 Dose: 40 mg Fentanyl (Duragesic) 75 mcg TOP Q48H [facility] Stop: 09/15/16 19:59 Last Admin: 09/01/16 19:51 Dose: 75 mcg Guaifenesin (Mucinex) 1,200 mg PO Q12 [facility] Stop: 09/15/16 16:59 Last Admin: 09/03/16 08:36 Dose: 1,200 mg Insulin Human Regular (Humulin R) 0 units SQ Q6 ZHAO PRN Reason: Protocol Stop: 09/15/16 16:59 Last Admin: 09/03/16 05:45 Dose: Not Given Methylprednisolone Sodium Succinate (Solu-Medrol) 40 mg IV Q8H [facility] Stop: 09/16/16 05:59 Last Admin: 09/03/16 05:51 Dose: 40 mg Metoprolol Succinate (Toprol Xl) 25 mg PO DAILY [facility] Stop: 09/16/16 08:59 Last Admin: 09/03/16 08:36 Dose: 25 mg Nitroglycerin (Ntg (Nitrostat Sublingual Tab)) 0.4 mg SL Q5MIN PRN PRN Reason: Chest Pain or Discomfort Stop: 09/15/16 12:55 Pantoprazole Sodium (Protonix) 40 mg PO 0600 [facility] Stop: 09/15/16 16:59 Last Admin: 09/03/16 05:51 Dose: 40 mg Fluticasone/Salmeterol (Advair 250-50) 1 puff INH RTBID [facility] Stop: 09/15/16 19:59 Last Admin: 09/02/16 20:01 Dose: 1 puff Simvastatin (Zocor) 40 mg PO HS [facility] Stop: 09/15/16 20:59 Last Admin: 09/02/16 22:11 Dose: 40 mg Sodium Chloride (Normal Saline) 1,000 mls @ 45 mls/hr IV Q24H [facility] Stop: 09/15/16 16:59 Last Admin: 09/03/16 08:38 Dose: 45 mls/hr Trazodone HCl (Desyrel) 50 mg PO QHS [facility] Stop: 09/15/16 20:59 Last Admin: 09/02/16 22:11 Dose: 50 mg - Assessment/Plan (1) Acute bronchitis Acute J20.9 - ACUTE BRONCHITIS, UNSPECIFIED Comment/Plan: Patient to go home soon. Patient is improving slowly continues to wheeze would start the patient on prednisone 40 mg along with oxygen DVT and GI prophylaxis and supportive care would follow the patient within 1 week in my office (2) Acute exacerbation of chronic obstructive airways disease Acute J44.1 - CHRONIC OBSTRUCTIVE PULMONARY DISEASE W (ACUTE) EXACERBATION Comment/Plan: Continue the current steroids along with nebulizers and oxygen. Patient is on antibiotic (3) Acute respiratory failure with hypoxia Acute J96.01 - ACUTE RESPIRATORY FAILURE WITH HYPOXIA Comment/Plan: Continue oxygen as needed continue other DVT and GI prophylaxis (4) Lung nodule Acute R91.1 - SOLITARY PULMONARY NODULE Comment/Plan: Patient has a chronic lung nodule and would follow that up as an outpatient I personally saw and evaluated the patient.: Yes Case Care Discussed with: Patient Education/Counseling Given To: Patient Education/Counseling Given Regarding: Diagnosis, Treatment, Prognosis, Follow Up , Disposition Plan
[2016-09-04] MEDS: AZELASTINE 137 MCG/SPRAY NASAL SPRAY NAS SCH (08:17)
[2016-09-04] MEDS: GUAIFENESIN 600 MG LA TAB PO SCH (08:18)
[2016-09-04] MEDS: BuPROPion 150 MG XL TAB PO SCH (08:19)
[2016-09-04] MEDS: METOPROLOL (TOPROL-XL) 25 MG TAB PO SCH (08:19)
--- NOTE | 2016-09-04 08:58 | PCM.DCS92 ---
- Final/Secondary Discharge Diagnosis (1) Acute respiratory failure with hypoxia Acute J96.01 - ACUTE RESPIRATORY FAILURE WITH HYPOXIA Present on Admission: Yes Comment: Slow improvement on maximal pulmonary therapy. Continue O2 nebs and pulmonary toilet. Monitor pulmonary status.. Pulmonary input appreciated (2) Acute exacerbation of chronic obstructive airways disease Acute J44.1 - CHRONIC OBSTRUCTIVE PULMONARY DISEASE W (ACUTE) EXACERBATION Present on Admission: Yes Comment: Currently stable on room air at 95% O2 sat- Will discharge home today, schedule follow-up with Dr. Moon in 1 week. (3) Bronchopneumonia Acute J18.0 - BRONCHOPNEUMONIA, UNSPECIFIED ORGANISM Present on Admission: Yes Comment: Patient has had 3 days of IV Rocephin and Zithromax. He will receive po antibiotics in the form of Ceftin 500 mg BID x 1 week. (4) CAD (coronary artery disease) Chronic I25.10 - ATHSCL HEART DISEASE OF [place] CORONARY ARTERY W/O ANG PCTRS Present on Admission: Yes [place] artery [place] heart without angina I25.10 - Atherosclerotic heart disease of [place] coronary artery without angina pectoris Comment: Asymptomatic. Continue medical therapy. Patient has had 3 sets of troponins that were all within normal limits. (5) COPD with exacerbation Acute J44.1 - CHRONIC OBSTRUCTIVE PULMONARY DISEASE W (ACUTE) EXACERBATION Present on Admission: Yes Comment: Continue steroid taper and nebulized bronchodilators. Increase activity. Discharge Disposition: Home Discharge Condition: Improved Cognitive Discharge Status: Unimpaired Fuctional Discharge Status: Independent Physician Follow up/Referrals: Ellie Moon MD [Primary Care Provider] - One Week Home Medications / New Prescriptions: New Cefuroxime Axetil [Ceftin] 500 mg PO BID #14 tablet Prednisone [Sterapred Ds] 10 mg PO DIR #48 pack Continue Metoprolol Succinate [Toprol Xl] 25 mg PO DAILY Simvastatin 40 mg PO HS Montelukast Sodium [Singulair] 10 mg PO HS Dexlansoprazole [Dexilant] 30 mg PO DAILY Nitroglycerin [Nitroquick] 0.4 mg SL Q5MX3 PRN PRN Reason: Chest Pain Or Discomfort Fluticasone/Salmeterol [Advair 250-50 Diskus] 1 puff INH BID Albuterol Sulfate [Proair Hfa] 2 puff INH QID Tiotropium [place] [Spiriva] 18 mcg INH DAILY Nebulizer [Needs Home Nebulizer] 1 item NEB DIR Albuterol/Ipratropium Neb [Duoneb] 3 ml NEB Q6H PRN PRN Reason: Shortness Of Breath Aspirin [Aspirin EC] 81 mg PO DAILY Fentanyl [Fentanyl 75 mcg/hr patch] 75 mcg TOP Q48H Trazodone HCl [Desyrel] 50 mg PO QHS Fluticasone Propionate [Flonase] 1 spray NITA DAILY Bupropion HCl [Wellbutrin Xl] 150 mg PO .DAILY SEE COMMENTS Diphenoxylate HCl/Atrop Sulf [Lomotil Tablet] 1 tab PO Q6H PRN PRN Reason: Diarrhea Azelastine HCl 1 spray NITA DAILY Hydrocodone 5 mg & APAP 325 mg [Lortab 5-325 Tab] 1 tab PO QID PRN PRN Reason: Pain O2 Device: Room Air Diet at Discharge: Heart Healthy Activity: As Tolerated Call Office For: Worsening Symptoms, Fever over 101 F Discontinue use of:: Alcohol, All Types of Tobacco - DC Summary Notes Hospital Course Note:: Discharge summary on patient named ALFREDO IRWIN admitted to [facility] on 09/01/16 by Dav Krause MD. Date of discharge is [09/04/16]. 56 yowm presented emergency room early on today for evaluation of progressive worsening difficulties breathing chest tightness wheezes cough and phlegm production. Patient stays about a week ago he has developed chest congestion cough productive of small amount of foamy sputum. He has subsequent developed progressive worsening dyspnea chest tightness wheezes which has progressively worsened and not responded to increased frequency of nebulized bronchodilators. Patient reports low-grade fevers chills and sweats, he also reports episodes of pleuritic chest pain. He has been coughing producing fair amount of greenish brownish sputum. Over past couple days his dyspnea has worsened in early on this morning patient was found himself gasping for air and decided to be evaluated emergency room. Upon arrival in ED was found to be in severe respiratory distress hypoxic tachypneic and tachycardic. His PaO2 was only 55, CT chest confirmed bronchopneumonia and medical consultation was phoned in for inpatient treatment. He was admitted to the hospital, had blood cultures done and was started on IV antibiotics. Patient has had 3 days of IV Rocephin and Zithromax and is doing much better now. He has been on supplemental oxygen and pulmonary toilet, but has been able to wean to room air now. His chest pain has resolved, and he is feeling better. Patient has had 3 sets of troponins that were all within normal limits. He will receive po antibiotics in the form of Ceftin 500 mg BID x 1 week. He is to be discharged home today, to follow up with Dr. Moon in 1 week. Code: [id number] (>30min.) - Physical Exam Vital Signs: Last Vital Signs Temp 97.9 F 09/04/16 04:30 Pulse 88 09/04/16 08:20 Resp 18 09/04/16 04:30 BP 110/68 09/04/16 08:20 Pulse Ox 95 09/04/16 07:52 Oxygen Pulse Oxygen Saturation 95 O2 Device Room Air Oxygen Flow Rate 1 Fraction of Inspired Oxygen ( FIO2) Constitutional: No apparent distress, Alert, [place] Oriented to: Time, Person, Place - HEENT Head: Normal Eye: Normal Oropharynx: Normal ENT EAC: Normal Nose: No Symptoms Reported - Respiratory/Cardiovascular Respiratory: Normal - CTA Cardiovascular: Normal - GI Auscultation: Normal Palpation: Normal Tenderness: Non tender Rectal Exam: Deferred - Musculoskeletal Back: Lumbar Step-off Extremities: Normal, Cyanosis - Integumentary Skin: Warm, Dry Lymphatics: Normal - Neurologic Memory Impaired: Normal Motor Function: Normal Cranial Nerve: Normal Cerebellar: Normal Mood Description: Anxious Thought: Coherent Perception: Normal
[2016-09-04 10:09] VITALS: BP 119/73; PULSE 75; TEMP 98.6
== END 2016-09-04 12:07 | disposition home or self-care (01) | DRG 189 ==
LOC: ED 10:03 → PCU 12:43 → MPS3 09-03 06:13
PROVIDERS: ADMIT Internal Medicine; ATTEND Family Medicine
PROC: 039B3ZZ Drainage of Right Radial Artery, Percutaneous Approach (ICD-10-PCS; principal; 2016-09-01)
DX: J96.01 Acute respiratory failure with hypoxia (principal); I21.3 ST elevation (STEMI) myocardial infarction of unspecified site; J18.0 Bronchopneumonia, unspecified organism; J44.0 Chronic obstructive pulmonary disease with (acute) lower respiratory infection; J44.1 Chronic obstructive pulmonary disease with (acute) exacerbation; I25.10 Atherosclerotic heart disease of native coronary artery without angina pectoris; M45.9 Ankylosing spondylitis of unspecified sites in spine; G89.29 Other chronic pain; F17.218 Nicotine dependence, cigarettes, with other nicotine-induced disorders; R91.1 Solitary pulmonary nodule; Z71.6 Tobacco abuse counseling; E86.0 Dehydration; I10 Essential (primary) hypertension; Z95.5 Presence of coronary angioplasty implant and graft; E78.00 Pure hypercholesterolemia, unspecified; I25.2 Old myocardial infarction
CPT/HCPCS: 36415; 36600; 71010; 71275; 80048; 80053; 82803; 82962; 83735; 83880; 84484; 85007; 85025; 85027; 85610; 85730; 87040; 93005; 94640; 96361; 96365; 96366; 96372; 99284; 99406; A9698; G0237; J0456; J0696; J1650; J2920; J2930; J3490; J7060; J7070; J7620